=== PATIENT | female | born 1955 | race African-American/Black ===

== ENCOUNTER 2018-06-18 09:01 | Emergency (ER) | payer MEDICARE, OTHER ==
[~2018-06-18] VITALS: Ht 165.1 cm; Wt 78.0 kg
[2018-06-18] MEDS ORDERED: KETOROLAC 30MG/ML VIAL IV STA (10:08)
[2018-06-18] MEDS ORDERED: SODIUM CHLORIDE 0.9% 1,000 ML IV ONE (10:08)
[2018-06-18 10:50] LABS: BASOPHILS % 0.5 % (0.0-2.0); EOSINOPHILS % 3.2 % (0.0-5.0); HEMATOCRIT. 33.9 % (36.0-48.0); HEMOGLOBIN. 10.8 g/dL (12.0-16.0); LYMPHOCYTES % 34.5 % (20.0-50.0); MEAN CORPUSCULAR HEMOGLOBIN 23.1 pg (28.0-32.0); MEAN CORPUSCULAR VOLUME 72.7 fL (81.0-99.0); MEAN PLATELET VOLUME 7.9 fl (7.4-10.4); MONOCYTES % 9.8 % (2.0-8.0); PLATELET 298 x1000/uL (130-400); RED BLOOD CELL COUNT 4.67 mill/uL (4.2-5.4); RED CELL DISTRIBUTION WIDTH 13.8 % (11.6-14.6)
[2018-06-18 10:51] LABS: CLARITY URINE TURBID (CLEAR); COLOR URINE YELLOW (YELLOW); KETONES URINE NEGATIVE (NEGATIVE); LEUKOCYTE ESTERASE URINE NEGATIVE (NEGATIVE); NITRITE URINE NEGATIVE (NEGATIVE); OCCULT BLOOD URINE NEGATIVE (NEGATIVE); PH URINE 8.5 (4.5-8.0); PROTEIN URINE NEGATIVE (NEGATIVE); SPECIFIC GRAVITY URINE 1.015 (1.005-1.030); UROBILINOGEN URINE 0.2 E.U./dL (0.2-1.0)
[2018-06-18 10:59] LABS: PROTHROMBIN TIME 10.1 sec (9.1-11.1)
[2018-06-18 11:01] LABS: CHLORIDE 108 mEq/L (98-107)
[2018-06-18] MEDS ORDERED: ASPIRIN 81MG TABLET PO ONE (12:00)
[2018-06-18] MEDS ORDERED: FENTANYL CITRATE/PF 50MCG/ML 2ML VIAL IV ONE ×2 (12:00→14:00)
[2018-06-18 15:35] VITALS: BP 149/91
== END 2018-06-18 15:50 | disposition left against medical advice (07) ==
LOC: ER 09:20 → EDBEDREQTM 13:44 → EDBEDREQ 13:44 → ER 15:50 → CANBEDREQ 19:10
DX: I47.9 Paroxysmal tachycardia, unspecified (principal); I49.9 Cardiac arrhythmia, unspecified; R10.32 Left lower quadrant pain; Z90.710 Acquired absence of both cervix and uterus; Z90.89 Acquired absence of other organs
CPT/HCPCS: 36415; 71045; 74176; 80053; 81003; 82962; 83880; 84484; 85025; 85610; 93005; 96374; 96375; 96376; 99291; J1885; J3010; J7030; Z7610